=== PATIENT | female | born 1975 | race Caucasian/White ===

== ENCOUNTER 2018-09-07 19:29 | Emergency (ER) | payer SELFPAY ==
[2018-09-07] MEDS ORDERED: Ibuprofen TAB* 600 MG PO ONE (21:08)
[2018-09-07] MEDS ORDERED: Lidocaine 1% MPF wEPI 200,000* 30 ML SDV INJ ONE (21:08)
[2018-09-07] MEDS ORDERED: Clindamycin CAP* 150 MG PO ONE (21:09)
--- NOTE | 2018-09-07 21:16 | ED ---
Skin Complaint - HPI Summary HPI Summary: Pt is 42 y/o otherwise healthy female with worsening right-sided groin pain x 2 days. States she has a history of abscess at the left-sided groin requiring I& D. Denies fevers, chills, abdominal pain, nausea, vaginal discharge, dysuria, worse pain with lifting. - History of Current Complaint Chief Complaint: EDUrogenitalProblems Time Seen by Provider: 09/07/18 20:50 Stated Complaint: POSS HERNIA PER PT Hx Obtained From: Patient Hx Last Menstrual Period: 08/22/2018 Onset/Duration: Started Days Ago Timing: Constant Onset Severity: Moderate Current Severity: Severe Pain Intensity: 7 Pain Scale Used: 0-10 Numeric Skin Location: Other: - Right groin Character: Painful Aggravating Symptom(s): Touch Alleviating Symptom(s): Nothing - Allergy/Home Medications Allergies/Adverse Reactions: Allergies Allergy/AdvReac Type Severity Reaction Status Date / Time latex Allergy Hives Verified 09/07/18 19:37 Penicillins Allergy Hives Verified 09/07/18 19:36 PMH/Surg Hx/FS Hx/Imm Hx Previously Healthy: Yes - Surgical History Surgical History: Yes Surgery Procedure, Year, and Place: c section Infectious Disease History: No Infectious Disease History: Denies: Hx of Known/Suspected MRSA, Traveled Outside the [place] in Last 30 Days - Family History Known Family History: Positive: Non-Contributory - Social History Alcohol Use: Occasionally Substance Use Type: Reports: None Smoking Status (MU): Heavy Every Day Tobacco Smoker Review of Systems Negative: Fever, Chills Negative: Chest Pain Negative: Abdominal Pain, Nausea Negative: dysuria, discharge Positive: Other - Right groin pain All Other Systems Reviewed And Are Negative: Yes Physical Exam Triage Information Reviewed: Yes Vital Signs On Initial Exam: Initial Vitals Temp Pulse Resp BP Pulse Ox 97.1 F 102 16 144/85 99 09/07/18 19:30 09/07/18 19:30 09/07/18 19:30 09/07/18 19:30 09/07/18 19:30 Vital Signs Reviewed: Yes Appearance: Positive: Well-Appearing, Pain Distress - Moderate pain distress with palpation of abscess Skin: Positive: Warm, Skin Color Reflects Adequate Perfusion, Dry, Other - Draining abscess to right groin, just lateral to labia majora. Moderate tenderness with palpation. Pus is draining. No red streaking, no warmth. Head/Face: Positive: Normal Head/Face Inspection Eyes: Positive: Normal, Conjunctiva Clear ENT: Positive: Normal ENT inspection Respiratory/Lung Sounds: Positive: Clear to Auscultation, Breath Sounds Present. Negative: Rales, Rhonchi, Wheezes Cardiovascular: Positive: RRR. Negative: Murmur, Rub Abdomen Description: Positive: Nontender, Soft. Negative: Distended Bowel Sounds: Positive: Present Pelvic Exam: Positive: External Exam Normal Musculoskeletal: Positive: Normal, Strength/ROM Intact Neurological: Positive: Normal, Sensory/Motor Intact, Alert, Oriented to Person Place, Time Psychiatric: Positive: Normal Procedures - Incision and Drainage Time: 1720 Site: Right groin Anesthesia: Local, Lidocaine Instrument(s): Scalpel Packing: Gauze Diagnostics - Vital Signs Vital Signs Temp Pulse Resp BP Pulse Ox 09/07/18 19:30 97.1 F 102 16 144/85 99 - Laboratory Lab Statement: Any lab studies that have been ordered have been reviewed, and results considered in the medical decision making process. Course/Dx - Course Course Of Treatment: 42 y/o female with currently draining abscess of right groin. I&D expressed pus, wound was packed with gauze. Received ibuprofen and a dose of clindamycin here, d/t penicillin allergy. Discharged with prescription for clindamycin. To remove packing in 2-3 days and f/u with PCP for wound recheck. Assessment/Plan: Patient with spontaneously draining abscess that was formally I &D. She was started on clindamycin here. Patient was seen in collaboration with the PA student. - Differential Diagnoses - Skin Complaint Differential Diagnoses: Abscess, Other - inguinal hernia, UTI, abscess, lymph node - Diagnoses Provider Diagnoses: Abscess of right groin Discharge - Sign-Out/Discharge Documenting (check all that apply): Patient Departure Patient Received Moderate/Deep Sedation with Procedure: No - Discharge Plan Condition: Improved Disposition: HOME Prescriptions: Clindamycin Cap(NF) [Clindamycin Cap 300 mg Cap(NF)] 300 mg PO TID #15 cap Patient Education Materials: Abscess (ED) Referrals: [facility] [Outside] [facility] [Outside] Additional Instructions: Clean with soap and water. Remove packing in 2 days time. Tylenol, ibuprofen as needed for pain. Return with fever, spreading redness, worse or other concerns. Follow up with a [facility]. - Billing Disposition and Condition Condition: IMPROVED Disposition: Home - Attestation Statements Document Initiated by Anup: Yes Documenting Scribe: MORA Vaughan Provider For Whom Anup is Documenting (Include Credential): Dr. Jacobs Scribe Attestation: Matt Christianson PA-S, scribed for Dr. Jacobs on 09/07/18 at 2153. Scribe Documentation Reviewed: Yes Provider Attestation: The documentation as recorded by the Matt thibodeaux PA-S accurately reflects the service I personally performed and the decisions made by Dr. Arlene vang Status of Scribe Document: Viewed
[2018-09-07 21:46] VITALS: BP 124/75
== END 2018-09-07 21:46 | disposition home or self-care (01) ==
LOC: ED 19:29
DX: L02.214 Cutaneous abscess of groin (principal); F17.210 Nicotine dependence, cigarettes, uncomplicated; Z88.0 Allergy status to penicillin
CPT/HCPCS: 10060; 87070; 87076; 87077; 87205; 87640; 87641; 99282; A9270-GY; J2001